=== PATIENT | female | born 1960 | race Caucasian/White ===

== ENCOUNTER 2017-04-27 01:36 | Emergency (ER) | payer OTHER ==
[~2017-04-27] VITALS: Ht 160 cm; Wt 68.0 kg
--- NOTE | 2017-04-27 01:56 | ED GI/GU/ABDOMINAL COMPLAINT ---
History of Present Illness General Chief Complaint: Abdominal Pain/Flank Pain Stated Complaint: DIVERTICULITIS Source: patient, family, old records Exam Limitations: no limitations Vital Signs & Intake/Output Vital Signs & Intake/Output Vital Signs Date Time Temp Pulse Resp B/P B/P Pulse O2 O2 Flow FiO2 Mean Ox Delivery Rate 04/27 0148 99 Room Air 04/27 0145 98.8 89 20 126/80 100 Room Air Allergies Coded Allergies: NO KNOWN ALLERGIES (06/29/11) Triage Note: PT FROM HOME C/O DIVERTICULITIS FLARE UP. PT STATES SHE HAS HX OF FLARE UPS AND THIS FEELS LIKE ONE OF THEM. PT STATES YESTERDAY SHE BEGAN TO FEEL PAIN, BUT TONIGHT IT RADIATES TO THE LEFT SIDE OF HER BACK AND IS 10/10. PT IN TRIAGE CRYING FROM PAIN. PT STATES SHE FEEL NAUSEOUS BUT NO EPISODES OF VOMITTING. PT DENIES ANY OTHER COMPLAINTS AT THIS TIME. AWAITNIG PROVIDER CASEY. Triage Nurses Notes Reviewed? yes ? N Is pt currently ? No HPI: Patient started yesterday with bilateral lower back pain. The pain was crampy in nature. The pain was constant until today. There is no radiation. There are no aggravating or mitigating factors. Today the pain migrated to the left lower quadrant. The pain is currently sharp and has increased to 10 out of 10. There are no aggravating or mitigating factors. There is no radiation. The pain is constant. Positive nausea but no vomiting. No diarrhea. Similar symptoms in the past and she had diverticulitis. Past History Travel History Traveled to [place] past 21 day No Medical History Any Pertinent Medical History? see below for history Cardiovascular: hyperlipidemia Gastrointestinal: diverticulitis Musculoskeletal: RHEUMATOID ARTHRITIS Psychiatric: depression Surgical History Surgical History: non-contributory Psychosocial History Who do you live with Spouse Services at Home None What is your primary language Azeri Tobacco Use: Quit >30 days ago ETOH Use: occasional use Illicit Drug Use: denies illicit drug use Family History Hx Contributory? No Review of Systems Review of Systems Constitutional: Reports: no symptoms. EENTM: Reports: no symptoms. Respiratory: Reports: no symptoms. Cardiovascular: Reports: no symptoms. GI: Reports: see HPI, abdominal pain, nausea. Genitourinary: Reports: no symptoms. Musculoskeletal: Reports: see HPI, back pain. Skin: Reports: no symptoms. Neurological/Psychological: Reports: no symptoms. Hematologic/Endocrine: Reports: no symptoms. Immunologic/Allergic: Reports: no symptoms. All Other Systems: Reviewed and Negative Physical Exam Physical Exam General Appearance: well developed/nourished, alert, awake, anxious, moderate distress Head: atraumatic, normal appearance Eyes: Bilateral: PERRL, EOMI. Ears, Nose, Throat, Mouth: hearing grossly normal, DRY MUCOSA Neck: normal inspection, supple, full range of motion Respiratory: normal breath sounds, chest non-tender, no respiratory distress, lungs clear Cardiovascular: regular rate/rhythm, normal peripheral pulses Gastrointestinal: normal bowel sounds, soft, guarding, tenderness (LLQ), NO REBOUND Back: CVA tenderness (R), CVA tenderness (L) Extremities: normal range of motion Neurologic/Psych: no motor/sensory deficits, awake, alert, oriented x 3, normal mood/affect Skin: intact, normal color, warm/dry Core Measures ACS in differential dx? No Severe Sepsis Present: No Septic Shock Present: No Progress Differential Diagnosis: bowel obstruction, diverticulitis, ischemic bowel, inflamm bowel dis, kidney stone, SBO, UTI/pyelo Plan of Care: Orders Procedure Date/time Status URINALYSIS 04/27 153 Complete COMPREHENSIVE METABOLIC PANEL 04/27 153 Complete CBC WITHOUT DIFFERENTIAL 04/27 153 Complete Current Medications Sig/Iftikhar Start time Last Medication Dose Stop Time Status Admin Ampicillin Sodium/ 3,000 MG ONCE ONE 04/27 0415 UNVr Sulbactam Sodium 04/27 0444 (Unasyn) Sodium Chloride 100 ML (Normal Saline 0.9%) Laboratory Tests 04/27/17 0319: Urine Color YEL, Urine Clarity CLEAR, Urine pH 6.5, Ur Specific [place] <= 1.005 , Urine Protein NEG, Urine Ketones NEG, Urine Nitrite NEG, Urine Bilirubin NEG, Urine Urobilinogen 0.2, Ur Leukocyte Esterase NEG, Ur Microscopic SEDIMENT EXAMINED, Urine RBC RARE, Urine WBC RARE, Ur Epithelial Cells FEW, Urine Mucus RARE, Urine Hemoglobin SMALL H, Urine Glucose NEG 04/27/17 0213: Anion Gap 11, Estimated GFR > 60, BUN/Creatinine Ratio 21.7, Glucose 106 H, Calcium 9.2, Total Bilirubin 0.5, AST 21, ALT 30, Alkaline Phosphatase 63, Total Protein 7.0, Albumin 4.3, Globulin 2.7, Albumin/Globulin Ratio 1.6, CBC w Diff NO MAN DIFF REQ, RBC 4.35, MCV 85.6, MCH 29.0, RDW 12.5, MPV 6.9 L, Gran % 68.2 , Lymphocytes % 22.1, Monocytes % 8.4, Eosinophils % 1.0, Basophils % 0.3, Absolute Granulocytes 6.1, Absolute Lymphocytes 2.0, Absolute Monocytes 0.8 H, Absolute Eosinophils 0.1, Absolute Basophils 0, PUBS MCHC 33.9 Diagnostic Imaging: Viewed by Me: CT Scan. Discussed w/RAD: CT Scan. Radiology Impression: PATIENT: DAVID NÚÑEZ PRESENT AGE: 56 PATIENT ACCOUNT NO: [id number] : 60 LOCATION: [facility] ORDERING PHYSICIAN: DULCE ANDERSON MD SERVICE DATE: 04/27/17 EXAM TYPE: CAT - CT ABD & PELVIS W IV CONTRAST EXAMINATION: CT ABDOMEN AND PELVIS WITH CONTRAST CLINICAL INFORMATION: Left lower quadrant pain COMPARISON: 2012 TECHNIQUE: Multidetector volumetric imaging was performed of the abdomen and pelvis before and after the IV administration of 95 mL of Optiray 320 intravenous contrast. Sagittal and coronal reformatted images were obtained on the technologist's workstation. DLP: 314.01 mGy-cm FINDINGS: LUNG BASES: The visualized lung bases are unremarkable. LIVER, GALLBLADDER, AND BILIARY TREE: The liver is normal in size, shape, and attenuation. There is a subcentimeter hypoattenuating lesion in the periphery of the liver, too small to characterize and which appears unchanged from prior. No biliary ductal dilatation is present. The gallbladder is unremarkable with no evidence of radiopaque gallstones, gallbladder wall thickening, or obvious pericholecystic inflammatory changes. PANCREAS: Unremarkable. SPLEEN: Unremarkable. ADRENAL GLANDS: Unremarkable. KIDNEYS AND URETERS: The kidneys are normal in size, shape, and attenuation. There are right renal cysts measuring up to 3.9 cm in diameter. No hydronephrosis, hydroureter, or calculi seen. No perinephric stranding. BLADDER: Unremarkable. GASTROINTESTINAL TRACT: Colonic diverticulosis is present. There is a short segment of wall thickening and surrounding inflammation in the distal descending colon, consistent with diverticulitis. No pericolonic abscess is seen. No evidence of bowel obstruction. The appendix is unremarkable. No free fluid or free air is seen. ABDOMINAL WALL: No significant hernia is appreciated. LYMPH NODES: Scattered mesenteric and retroperitoneal subcentimeter lymph nodes are present, without significant enlargement by size criteria. VASCULAR: There is atherosclerotic calcification along the aorta. PELVIC VISCERA: Unremarkable. OSSEOUS STRUCTURES: Mild scattered degenerative changes are noted in the spine. IMPRESSION: Diverticulitis of the distal descending colon. Correlation with recent or followup colonoscopy is advised to exclude an underlying mass lesion. DICTATED BY: JOSE M SALMON MD DATE/TIME DICTATED:04/27/17348 JUDICIAL LAW CLERK:RHONDA DATE/TIME TRANSCRIBED:04/27/17348 CONFIDENTIAL, DO NOT COPY WITHOUT APPROPRIATE AUTHORIZATION. <Electronically signed in Other Vendor System> SIGNED BY: JOSE M SALMON MD 04/27/17 0400 Initial ED EKG: none Comments: Laboratory data CAT scan results have been discussed with the patient and her . Patient is due to have surgery on her hand at 9:30 this morning. Patient has not had anything by mouth. Patient feels okay to go home on antibiotics and pain medication. Departure Departure Disposition: HOME OR SELF CARE Condition: Stable Clinical Impression Primary Impression: Diverticulitis Qualifiers: Diverticulitis site: large intestine Diverticulitis bleeding: without bleeding Diverticulitis complication: without perforation or abscess Qualified Code: K57.32 - Diverticulitis of large intestine without perforation or abscess without bleeding Referrals: [facility],LINDA SCOTT) (PCP/Family) Additional Instructions: YOU RECEIVED 3,000MG OF UNASYN AT 4:30 THIS MORNING TAKE AUGMENTIN PRESCRIBED TAKE PERCOCET NEEDED FOR THE PAIN REUTNR FOR ANY CONCERNS OR IF THE PAIN WORSENS OR YOU BEGIN VOMITING Departure Forms: Customer Survey General Discharge Information Prescriptions: Current Visit Scripts Amoxicillin/Potassium Clav (Augmentin 875-125 Tablet) 1 TAB PO BID #20 TAB Oxycodone HCl/Acetaminophen (Percocet 5-325 MG Tablet) 1-2 TAB PO Q6P PRN PAIN #20 TAB
[2017-04-27 02:23] LABS: ABSOLUTE BASOPHIL COUNT 0 /CUMM (0.0-0.2); ABSOLUTE EOSINOPHIL COUNT 0.1 /CUMM (0.0-0.7); ABSOLUTE GRANULOCYTE CT 6.1 /CUMM (1.4-6.5); ABSOLUTE MONOCYTE COUNT 0.8 /CUMM (0.10-0.60); BASOPHIL % 0.3 % (0.0-2.0); GRANULOCYTE % 68.2 % (42.2-75.2); HEMATOCRIT 37.2 % (37-47); MEAN CORPUSCULAR HGB CONC 33.9 G/DL (33.0-37.0); MEAN CORPUSCULAR VOLUME 85.6 FL (81.0-99.0); MEAN PLATELET VOLUME 6.9 FL (7.4-10.4); PLATELET COUNT 296 /CUMM (130-400); RBC DISTRIBUTION WIDTH 12.5 % (11.5-14.5); RED BLOOD CELL CT 4.35 /CUMM (4.20-5.40)
--- NOTE | 2017-04-27 04:00 | CT SCAN REPORT ---
EXAMINATION: CT ABDOMEN AND PELVIS WITH CONTRAST CLINICAL INFORMATION: Left lower quadrant pain COMPARISON: 01/08/2013 TECHNIQUE: Multidetector volumetric imaging was performed of the abdomen and pelvis before and after the IV administration of 95 mL of Optiray 320 intravenous contrast. Sagittal and coronal reformatted images were obtained on the technologist's workstation. DLP: 314.01 mGy-cm FINDINGS: LUNG BASES: The visualized lung bases are unremarkable. LIVER, GALLBLADDER, AND BILIARY TREE: The liver is normal in size, shape, and attenuation. There is a subcentimeter hypoattenuating lesion in the periphery of the liver, too small to characterize and which appears unchanged from prior. No biliary ductal dilatation is present. The gallbladder is unremarkable with no evidence of radiopaque gallstones, gallbladder wall thickening, or obvious pericholecystic inflammatory changes. PANCREAS: Unremarkable. SPLEEN: Unremarkable. ADRENAL GLANDS: Unremarkable. KIDNEYS AND URETERS: The kidneys are normal in size, shape, and attenuation. There are right renal cysts measuring up to 3.9 cm in diameter. No hydronephrosis, hydroureter, or calculi seen. No perinephric stranding. BLADDER: Unremarkable. GASTROINTESTINAL TRACT: Colonic diverticulosis is present. There is a short segment of wall thickening and surrounding inflammation in the distal descending colon, consistent with diverticulitis. No pericolonic abscess is seen. No evidence of bowel obstruction. The appendix is unremarkable. No free fluid or free air is seen. ABDOMINAL WALL: No significant hernia is appreciated. LYMPH NODES: Scattered mesenteric and retroperitoneal subcentimeter lymph nodes are present, without significant enlargement by size criteria. VASCULAR: There is atherosclerotic calcification along the aorta. PELVIC VISCERA: Unremarkable. OSSEOUS STRUCTURES: Mild scattered degenerative changes are noted in the spine. IMPRESSION: Diverticulitis of the distal descending colon. Correlation with recent or followup colonoscopy is advised to exclude an underlying mass lesion.
[2017-04-27] MEDS ORDERED: PERCOCET 5-3251 EACH PO (04:15)
[2017-04-27] MEDS ORDERED: AUGMENTIN 875-1 EACH PO (04:15)
[2017-04-27] MEDS ORDERED: LINZESS290 MC1 PO (05:16)
[2017-04-27 05:50] VITALS: BP 124/78
== END 2017-04-27 05:50 ==
LOC: ERH 01:36
PROVIDERS: Emergency Medicine
DX: K57.92 Diverticulitis of intestine, part unspecified, without perforation or abscess without bleeding (principal)
CPT/HCPCS: 74177; 81001; 96365; 96375; 96376; J1885; J2405